=== PATIENT | male | born 1955 | race Two or more races ===

== ENCOUNTER 2022-12-24 16:31 | Inpatient (IN) | payer OTHER ==
[~2022-12-24] VITALS: Ht 177.8 cm; Wt 63.2 kg
[2022-12-24] MEDS ORDERED: dexaMETHasone SOD PHOSPHATE 10 MG/ML VIAL IV ONE (18:30)
[2022-12-24] MEDS ORDERED: KETOROLAC TROMETHAMINE INJ 30 MG/ML VIAL IV ONE (18:30)
[2022-12-24] MEDS ORDERED: dexaMETHasone SOD PHOSPHATE 10 MG/ML VIAL ONE (18:31)
[2022-12-24] MEDS ORDERED: KETOROLAC TROMETHAMINE 15 MG/ML VIAL ONE (18:31)
[2022-12-24 18:54] LABS: BASOPHILS % (AUTO) 0.7 % (0.0-2.0); EOSINOPHILS # (AUTO) 0.1 K/uL (0.0-0.7); EOSINOPHILS % (AUTO) 1.7 % (0.0-6.0); HEMATOCRIT 39 % (39-51); HEMOGLOBIN 12.9 g/dL (13.5-17.5); LYMPHOCYTES # (AUTO) 0.4 K/uL (0.8-4.8); LYMPHOCYTES % (AUTO) 6.3 % (20.0-44.0); MEAN CORPUSCULAR HEMOGLOBIN 28 PG (26.0-33.0); MEAN CORPUSCULAR HGB CONC 33 g/dl (31.0-36.0); MEAN CORPUSCULAR VOLUME 84 fL (80-96); MONOCYTES # (AUTO) 0.4 K/uL (0.1-1.30); MONOCYTES % (AUTO) 5.1 % (2.0-12.0); NEUTROPHILS # (AUTO) 6.1 K/uL (1.8-8.9); NEUTROPHILS % (AUTO) 86.2 % (43.0-81.0); PLATELET COUNT (AUTO) 362 K/uL (150-450); RED BLOOD CELL COUNT(AUTO) 4.62 MIL/uL (4.5-6.0); RED CELL DISTRIBUTION WIDTH 14.2 % (11.5-15.0); WHITE BLOOD COUNT (AUTO) 7.1 K/uL (4.3-11.0)
[2022-12-24 19:00] LABS: INR 1.09 (0.91-1.10); PARTIAL THROMBOPLASTIN TIME 25.7 SEC (24.3-34.3); PROTHROMBIN TIME 11.4 SECS (9.2-11.1)
[2022-12-24 19:08] LABS: ALANINE AMINOTRANSFERASE 31 U/L (12-78); ALKALINE PHOSPHATASE 79 U/L (46-116); ASPARTATE AMINOTRANSFERASE 32 U/L (15-37); BILIRUBIN,DIRECT 0.2 mg/dL (0.0-0.2); BILIRUBIN,TOTAL 0.8 mg/dL (0.2-1.0); CALCIUM, SERUM 9.6 mg/dL (8.5-10.1); CARBON DIOXIDE 21 mmol/L (21-32); CHLORIDE 97 mmol/L (98-107); CREATININE 2.5 mg/dL (0.6-1.3); GLUCOSE 99 mg/dL (74-106); SODIUM SERUM 136 mmol/L (136-145); TOTAL PROTEIN, SERUM 8.8 g/dL (6.4-8.2); UREA NITROGEN, BLOOD 44 mg/dL (7-18)
[2022-12-24 19:10] LABS: LACTIC ACID 1.8 mmol/L (0.4-2.0); POTASSIUM 2.6 mmol/L (3.5-5.1)
[2022-12-24] MEDS ORDERED: POTASSIUM CHLORIDE 20 MEQ TAB.PRT.SR PO ONE (20:00)
[2022-12-24] MEDS ORDERED: CLINDAMYCIN 900 MG/6 ML VIAL ONE (20:19)
[2022-12-24] MEDS ORDERED: CLINDAMYCIN 600 MG in IV D5W 100 ML IV ONE (20:30)
[2022-12-24] MEDS ORDERED: [UNRECOGNIZED DRUG - OTHER] (22:24)
[2022-12-24] MEDS ORDERED: TAMS-12 PO (22:54)
[2022-12-24] MEDS ORDERED: ARIP2TAB3 PO (23:05)
[2022-12-24] MEDS ORDERED: IBUP-1953 PO (23:05)
[2022-12-24] MEDS ORDERED: GABA100C PO (23:05)
[2022-12-24] MEDS ORDERED: AMLO2.5T4 PO (23:05)
[2022-12-24 23:11] VITALS: BP 107/77; TEMP 98.4
[2022-12-24] MEDS ORDERED: MORPHINE SULFATE INJ 2 MG/ML DISP.SYRIN IV PRN (23:30)
[2022-12-24] MEDS ORDERED: ONDANSETRON HCL/PF 4 MG/2 ML VIAL IVP PRN (23:30)
[2022-12-24] MEDS ORDERED: Potassium Chloride 20 MEQ in IV D5/ 0.9% NACL 1,000 ML IV PRN (23:30)
[2022-12-24] MEDS ORDERED: ACETAMINOPHEN 650 MG/SUPP.RECT RC PRN (23:30)
[2022-12-24] MEDS ORDERED: FLUCONAZOLE IN NS 100 MG in PREMIX 1 EA IV SCH ×2 (23:30)
[2022-12-24] MEDS ORDERED: FLUCONAZOLE IN NS 100 ML IV ONE (23:55)
[2022-12-25] MEDS ORDERED: IV PREMIX D5 1/2NS + KCL 1,000 ML IV ONE ×2 (00:30)
[2022-12-25] MEDS ORDERED: DARU1TAB3 PO (07:17)
[2022-12-25] MEDS ORDERED: ARIP20TA20 PO (07:17)
[2022-12-25 07:31] LABS: BASOPHILS % (AUTO) 0.2 % (0.0-2.0); HEMATOCRIT 34 % (39-51); HEMOGLOBIN 11.5 g/dL (13.5-17.5); LYMPHOCYTES # (AUTO) 0.9 K/uL (0.8-4.8); MEAN CORPUSCULAR HEMOGLOBIN 28 PG (26.0-33.0); MEAN CORPUSCULAR HGB CONC 34 g/dl (31.0-36.0); MEAN CORPUSCULAR VOLUME 82 fL (80-96); MONOCYTES # (AUTO) 0.3 K/uL (0.1-1.30); MONOCYTES % (AUTO) 6.6 % (2.0-12.0); NEUTROPHILS # (AUTO) 3.7 K/uL (1.8-8.9); NEUTROPHILS % (AUTO) 75.2 % (43.0-81.0); PLATELET COUNT (AUTO) 334 K/uL (150-450); RED BLOOD CELL COUNT(AUTO) 4.15 MIL/uL (4.5-6.0); WHITE BLOOD COUNT (AUTO) 4.9 K/uL (4.3-11.0)
[2022-12-25 08:00] VITALS: BP 149/50; TEMP 97.7; O2SAT 98
[2022-12-25 08:25] LABS: ALBUMIN 2.6 g/dL (3.4-5.0); BILIRUBIN,TOTAL 0.5 mg/dL (0.2-1.0); CALCIUM, SERUM 9.4 mg/dL (8.5-10.1); CREATININE 2.2 mg/dL (0.6-1.3); MAGNESIUM 2.5 mg/dL (1.8-2.4); PHOSPHORUS 5.8 mg/dL (2.5-4.9); POTASSIUM 3.2 mmol/L (3.5-5.1); TOTAL PROTEIN, SERUM 7.7 g/dL (6.4-8.2)
[2022-12-25 08:31] LABS: THYROID STIMULATING HORMONE 1.122 uIU/mL (0.358-3.74)
[2022-12-25] MEDS ORDERED: PANTOPRAZOLE 40 MG VIAL IV SCH (09:00)
[2022-12-25] MEDS ORDERED: CLINDAMYCIN PHOSPHATE IV 600 MG/4 ML VIAL IV ONE (09:00)
[2022-12-25] MEDS ORDERED: CLINDAMYCIN 600 MG in IV D5W 50 ML IV SCH (09:00)
[2022-12-25] MEDS: POTASSIUM CL. PREMIX PERIPHER. 50 ML IV SCH ×2 (12:09→13:32)
[2022-12-25 15:07] LABS: APPEARANCE,URINE CLEAR (CLEAR); BILIRUBIN,URINE NEGATIVE (NEGATIVE); BLOOD, URINE TRACE-INTA Ery/uL (NEGATIVE); COLOR,URINE YELLOW (YELLOW); KETONES,URINE TRACE mg/dL (NEGATIVE); LEUKOCYTE ESTERASE ,URINE NEGATIVE (NEGATIVE); NITRITE, URINE NEGATIVE (NEGATIVE); PH,URINE 5.5 (5.0-8.0); PROTEIN,URINE 1+ mg/dl (NEGATIVE); UGLUCOSE NEGATIVE (NEGATIVE); UROBILINOGEN,URINE 0.2 EU/dL (0.2)
[2022-12-25 16:00] VITALS: BP 102/72; TEMP 98.4; O2SAT 99
[2022-12-25 16:16] LABS: WBC,URINE 0-2 /HPF (0-3)
[2022-12-25 16:17] LABS: ADD URINE CULTURE NO; BACTERIA,URINE RARE /HPF (None Seen); HYALINE CASTS, URINE Few /LPF (None Seen); MUCUS,URINE Few /LPF (None Seen); URINE AMORPHOUS URATE Few /HPF (None Seen)
[2022-12-25 16:56] LABS: CREATININE, URINE 184.5 MG/DL (30.0-125.0); URINE TOTAL PROTEIN 77.5 mg/dL (0-11.9)
[2022-12-25] MEDS ORDERED: Potassium Chloride 20 MEQ in IV D5/0.45 NACL 1,000 ML IV ONE (17:00)
[2022-12-25 17:03] LABS: EOSINOPHIL,URINE None Seen
[2022-12-25 20:00] VITALS: BP 106/74; TEMP 97.5; O2SAT 94
[2022-12-25] MEDS: FLUCONAZOLE (100 MG) 100 MG TABLET PO SCH (20:46)
[2022-12-25] MEDS ORDERED: FLUCONAZOLE IN NS 100 MG in PREMIX 1 EA IV SCH ×2 (21:00)
[2022-12-25 23:20] VITALS: BP 106/74; TEMP 97.5; O2SAT 94
[2022-12-26 07:16] LABS: BASOPHILS % (AUTO) 0.3 % (0.0-2.0); EOSINOPHILS % (AUTO) 0.5 % (0.0-6.0); HEMATOCRIT 36 % (39-51); HEMOGLOBIN 11.8 g/dL (13.5-17.5); LYMPHOCYTES # (AUTO) 1.4 K/uL (0.8-4.8); LYMPHOCYTES % (AUTO) 26.8 % (20.0-44.0); MEAN CORPUSCULAR HEMOGLOBIN 28 PG (26.0-33.0); MEAN CORPUSCULAR HGB CONC 33 g/dl (31.0-36.0); MEAN CORPUSCULAR VOLUME 86 fL (80-96); MONOCYTES # (AUTO) 0.9 K/uL (0.1-1.30); NEUTROPHILS % (AUTO) 55.4 % (43.0-81.0); PLATELET COUNT (AUTO) 302 K/uL (150-450); RED BLOOD CELL COUNT(AUTO) 4.21 MIL/uL (4.5-6.0); RED CELL DISTRIBUTION WIDTH 14.3 % (11.5-15.0); WHITE BLOOD COUNT (AUTO) 5.4 K/uL (4.3-11.0)
[2022-12-26 07:58] LABS: ALBUMIN 2.6 g/dL (3.4-5.0); BILIRUBIN,TOTAL 0.5 mg/dL (0.2-1.0); CALCIUM, SERUM 9.3 mg/dL (8.5-10.1); CREATININE 1.7 mg/dL (0.6-1.3); MAGNESIUM 2.5 mg/dL (1.8-2.4); PHOSPHORUS 3.2 mg/dL (2.5-4.9); TOTAL PROTEIN, SERUM 7.7 g/dL (6.4-8.2)
[2022-12-26 08:00] VITALS: BP 97/60; TEMP 97.6; O2SAT 98
[2022-12-26] MEDS: FLUCONAZOLE (100 MG) 100 MG TABLET PO SCH (08:29)
[2022-12-26] MEDS: PANTOPRAZOLE 40 MG TABLET.DR PO SCH (08:29)
[2022-12-26 09:49] LABS: POTASSIUM 3.4 mmol/L (3.5-5.1)
[2022-12-26] MEDS ORDERED: Magnesium 1GM/D5W 100ML PREMIX PIGGYBACK IV ONE (10:30)
[2022-12-26 11:15] LABS: BAND % (MANUAL) 9 % (0.0-5.0); NEUTROPHILS % (MANUAL) 43 (42-76)
[2022-12-26 11:16] LABS: ANISOCYTOSIS 1+; BASOPHILS % (MANUAL) 0 % (0.0-2.0); EOSINOPHILS % (MANUAL) 2 % (0-4); LYMPHOCYTES % (MANUAL) 28 % (16-48); MONOCYTES % (MANUAL) 18 % (0-11.0); PLATELET ESTIMATE ADEQUATE
[2022-12-26] MEDS: POTASSIUM CL. PREMIX PERIPHER. 50 ML IV SCH ×2 (11:24→12:21)
[2022-12-26 16:00] VITALS: BP 90/60; TEMP 97.4; O2SAT 100
[2022-12-26] MEDS ORDERED: LOPERAMIDE HCL (2 MG CAP) 2 MG CAPSULE PO PRN (16:30)
[2022-12-26 20:00] VITALS: BP 90/63; TEMP 97.7; O2SAT 99
[2022-12-27] MEDS ORDERED: POTASSIUM CHLORIDE 20 MEQ TAB.PRT.SR PO ONE (07:30)
[2022-12-27 08:00] VITALS: BP 87/58; TEMP 98.2; O2SAT 96
[2022-12-27 08:07] LABS: *BANDS 2 % (Not Estab.); *BASOS 0 % (Not Estab.); *COMMENTS Note: (.); *EOS 1 % (Not Estab.); *EOS, ABSOLUTE 0.1 x10E3/uL (0.0-0.4); *HCT 34.9 % (37.5-51.0); *HGB 11.8 g/dL (13.0-17.7); *LYMPHOCYTES 24 % (Not Estab.); *LYMPHS, ABSOLUTE 1.5 x10E3/uL (0.7-3.1); *MCH 28.4 pg (26.6-33.0); *MCHC 33.8 g/dL (31.5-35.7); *MCV 84 fL (79-97); *MONOCYTES 11 % (Not Estab.); *MONOS, ABSOLUTE 0.7 x10E3/uL (0.1-0.9); *NEUTROPHILS 57 % (Not Estab.); *NEUTROPHILS, ABSOLUTE 3.7 x10E3/uL (1.4-7.0); *PLT 366 x10E3/uL (150-450); *RBC 4.16 x10E6/uL (4.14-5.80); *RDW 13.6 % (11.6-15.4); *WBC 6.2 x10E3/uL (3.4-10.8)
[2022-12-27] MEDS: PANTOPRAZOLE 40 MG TABLET.DR PO SCH (08:32)
[2022-12-27] MEDS: FLUCONAZOLE (100 MG) 100 MG TABLET PO SCH (08:32)
[2022-12-27 09:07] LABS: *% CD 4 POS. LYMPH 2.8 % (30.8-58.5); *% CD 8 POS. LYMPH 64.7 % (12.0-35.5); *ABSOLUTE CD 4 HELPER 42 /uL (359-1519); *ABSOLUTE CD 8 SUPPRESSOR 971 /uL (109-897); *CD4/CD8 RATIO 0.04 (0.92-3.72)
[2022-12-27 12:19] LABS: CALCIUM, SERUM 8.9 mg/dL (8.5-10.1); CREATININE 1.5 mg/dL (0.6-1.3); MAGNESIUM 2.2 mg/dL (1.8-2.4); PHOSPHORUS 2.9 mg/dL (2.5-4.9); POTASSIUM 3.4 mmol/L (3.5-5.1)
[2022-12-27] MEDS ORDERED: AZITHROMYCIN 250 MG TABLET PO ONE (13:30)
[2022-12-27] MEDS: DAPSONE 25 MG TABLET PO SCH (15:01)
[2022-12-27 15:59] VITALS: BP 92/63; TEMP 98.7; O2SAT 97
[2022-12-27] MEDS: ACYCLOVIR 800 MG TABLET PO SCH (16:25)
[2022-12-27 20:00] VITALS: BP 97/64; TEMP 97.9; O2SAT 100
[2022-12-27] MEDS ORDERED: DIPHENOXYLATE HCL/ATROP SULF 1 UDTAB TABLET PO PRN (22:30)
[2022-12-28 07:30] VITALS: BP 113/74; TEMP 97.5; O2SAT 100
[2022-12-28] MEDS: FLUCONAZOLE (100 MG) 100 MG TABLET PO SCH (08:52)
[2022-12-28] MEDS: DAPSONE 25 MG TABLET PO SCH (08:52)
[2022-12-28] MEDS: PANTOPRAZOLE 40 MG TABLET.DR PO SCH (08:52)
[2022-12-28] MEDS: ACYCLOVIR 800 MG TABLET PO SCH ×2 (08:53→17:24)
[2022-12-28] MEDS: SUCRALFATE 1 G/10 ML UDC GT SCH ×2 (17:24→22:26)
[2022-12-28 20:00] VITALS: BP 99/59; TEMP 97.9; O2SAT 99
[2022-12-29] MEDS ORDERED: SUCR1TAB31 PO (08:00)
[2022-12-29] MEDS ORDERED: AZIT500T2 PO (08:00)
[2022-12-29] MEDS ORDERED: ACYC-108 PO (08:00)
[2022-12-29] MEDS ORDERED: PANT40TA49 PO (08:00)
[2022-12-29] MEDS ORDERED: FLUC100T8 PO (08:00)
[2022-12-29] MEDS ORDERED: DAPS25TA2 PO (08:00)
[2022-12-29] MEDS: SUCRALFATE 1 G TABLET PO SCH ×2 (08:19→12:29)
[2022-12-29] MEDS: ACYCLOVIR 800 MG TABLET PO SCH (08:19)
[2022-12-29] MEDS: DAPSONE 25 MG TABLET PO SCH (08:19)
[2022-12-29] MEDS: PANTOPRAZOLE 40 MG TABLET.DR PO SCH (08:19)
[2022-12-29] MEDS: FLUCONAZOLE (100 MG) 100 MG TABLET PO SCH (08:19)
[2022-12-29 08:32] VITALS: BP 137/43; TEMP 97.7; O2SAT 100
== END 2022-12-29 13:53 | disposition home or self-care (01) | DRG 974 ==
LOC: ER 16:33 → MED 21:38
PROVIDERS: ADMIT Internal Medicine; ATTEND Internal Medicine
PROC: 0DB58ZX Excision of Esophagus, Via Natural or Artificial Opening Endoscopic, Diagnostic (ICD-10-PCS; principal; 2022-12-28)
DX: B20 Human immunodeficiency virus [HIV] disease (principal); N17.0 Acute kidney failure with tubular necrosis; B37.81 Candidal esophagitis; A08.39 Other viral enteritis; R62.7 Adult failure to thrive; R13.10 Dysphagia, unspecified; K29.70 Gastritis, unspecified, without bleeding; Z20.822 Contact with and (suspected) exposure to COVID-19; I12.9 Hypertensive chronic kidney disease with stage 1 through stage 4 chronic kidney disease, or unspecified chronic kidney disease; N18.9 Chronic kidney disease, unspecified; Z88.0 Allergy status to penicillin; Z79.899 Other long term (current) drug therapy; E87.6 Hypokalemia; E88.09 Other disorders of plasma-protein metabolism, not elsewhere classified; Z86.19 Personal history of other infectious and parasitic diseases; E83.41 Hypermagnesemia; M89.8X9 Other specified disorders of bone, unspecified site; E86.9 Volume depletion, unspecified
CPT/HCPCS: 36415; 70490-TC; 71045-TC; 80048-TC; 80053-TC; 80061-TC; 80076-TC; 81001; 82570-TC; 83540-TC; 83605-TC; 83735-TC; 83970; 84100-TC; 84300-TC; 84443-TC; 84484-TC; 85025-TC; 85730-TC; 86360; 86403-TC; 87040-TC; 87081-TC; 87086-TC; 88305-TC; 88313-TC; A4216; A4223; C9113; C9803; G0378; J1100; J1450; J1885; J2704; J3480; J3490; J7030; J7042; J7050; J7060